=== PATIENT | male | born 1995 | race Caucasian/White ===

== ENCOUNTER 2017-07-14 08:04 | Emergency (ER) | payer OTHER ==
[2017-07-14 14:01] LABS: SODIUM SERUM 141 mmol/L (136-145)
[2017-07-14 14:02] LABS: ALBUMIN 4.4 g/dL (3.4-5.0); ALT/SGPT 33 U/L (16-63); AST/SGOT 17 U/L (15-37); BILIRUBIN TOTAL 0.49 mg/dL (0.20-1.00); CALCIUM 9.4 mg/dL (8.5-10.1); CARBON DIOXIDE 26 mmol/L (21-32); CHLORIDE SERUM 103 mmol/L (98-107); GFR1 > 60 mL/min; GLUCOSE SERUM 111 mg/dL (74-106); TOTAL PROTEIN, SERUM 8.8 g/dL (6.4-8.2)
[2017-07-14 14:03] LABS: ALKALINE PHOSPHATASE 94 U/L (46-116); AMYLASE 66 U/L (25-115); LIPASE 314 IU/L (73-393)
[2017-07-14 16:00] LABS: BASOPHIL % 0.4 % (0-2); PLATELET COUNT 258 x10^3mcL (130-400); RED CELL DISTRIBUTION WIDTH 13.3 % (11.5-14.5)
== END 2017-07-14 08:14 | disposition home or self-care (01) ==
LOC: ED 08:04
DX: R10.9 Unspecified abdominal pain (principal); R11.2 Nausea with vomiting, unspecified; R50.9 Fever, unspecified; M54.9 Dorsalgia, unspecified; I88.0 Nonspecific mesenteric lymphadenitis
CPT/HCPCS: 36415; J0295; J1885; J3490; Q9967